=== PATIENT | male | born 1990 ===

== ENCOUNTER 2022-11-21 15:23 | Emergency (ER) | payer SELFPAY ==
[2022-11-21 15:39] VITALS: BP 130/83; PULSE 79; RESP 16; TEMP 36.7; O2SAT 97; BMI 20.5
--- NOTE | 2022-11-21 15:51 | XRR_ITS ---
PROCEDURE INFORMATION: Exam: XR Chest Exam date and time: 11/21/2022 4:36 PM Age: 32 years old Clinical indication: Cough with hemorrhage; Additional info: Hemoptysis TECHNIQUE: Imaging protocol: Radiologic exam of the chest. Views: 2 views. COMPARISON: No relevant prior studies available. FINDINGS: Lungs: Unremarkable. No consolidation. Pleural spaces: Unremarkable. No pleural effusion. No pneumothorax. Heart/Mediastinum: Unremarkable. No cardiomegaly. Bones/joints: Unremarkable. XR/XR chest 2V* [id number] IMPRESSION: No acute findings.
[2022-11-21 16:43] LABS: Basophils % 0.6 %; Eosinophils # 0.1 10^3/uL (0.0-0.8); Eosinophils % 1.7 %; Hematocrit 45.4 % (42.0-52.0); Hemoglobin 15.5 g/dL (11.7-16.6); Lymphocytes # 2.6 10^3/uL (0.8-4.8); Lymphocytes % 36.4 %; Mean Corpuscular HGB Conc 34.1 g/dL (30.0-36.0); Mean Corpuscular Hemoglobin 28.4 pg (28.0-34.0); Mean Corpuscular Volume 83.3 fl (80-94); Mean Platelet Volume 11.3 fL (7.4-10.4); Monocytes # 0.4 10^3/uL (0.2-0.9); Monocytes % 5.7 %; Neutrophils # 4.02 10^3/uL (1.8-7.7); Neutrophils % 55.3 %; Nucleated Red Blood Cells % 0 %; Platelet Count 275 10^3/cmm (130-400); Red Blood Count 5.45 10^6/uL (4.1-5.3); Red Cell Distribution Width 12.4 % (12.1-15.1); White Blood Count 7.3 10^3/uL (4.0-10.0)
[2022-11-21 17:02] LABS: INR 1.05 (0.8-1.2)
[2022-11-21 17:03] LABS: Partial Thromboplastin Time 27.9 SECONDS (23.9-36.7)
[2022-11-21 17:07] LABS: Anion Gap 13.8 (5-19); Blood Urea Nitrogen 16 mg/dL (6-20); Calcium 9.9 mg/dL (8.5-10.5); Carbon Dioxide 27 mmol/L (22-29); Chloride 97 mmol/L (98-107); Glomerular Filtration Rate 99.1 mL/min (90-130); Glucose 76 mg/dL (65-115); Osmolality Calculated 278 mOsm/kg (285-295); Potassium 3.8 mmol/L (3.5-5.1); Sodium 134 mmol/L (136-145)
--- NOTE | 2022-11-21 18:28 | W.ED.GIBLEED ---
Documented by User: India Velasquez, ICT SUPPORT ENGINEER-C 11/22/22 01:02 HPI - GI Bleed General: Chief complaint: GI Bleed Stated complaint: vomiting blood Time Seen by Provider: 11/21/22 18:13 History of Present Illness: Patient is in today for vomiting blood. He reports that he was at work and he felt like he got choked on his spit and he coughed a lot and had some bloody mucus. He states that he then vomited a small amount of bright red blood mucus. He states that this happened 2 times at work today and is happened one other time approximately a month ago. He reports a very mild intermittent epigastric pain. He denies any fever or chills. He reports he is eating and drinking normally. He denies any nasal congestion or drainage. He denies any other symptoms. He states he takes no medications. He denies any blood in his stool or urine. Associated symptoms: Reports abdominal pain (Mild epigastric); Denies chills, fever(s), headache(s) or syncope Review of Systems Const: Denies: fever(s), chills or body aches Eyes: Denies: change in vision or blurry vision ENMT: Denies: throat pain Card: Denies: chest pain, palpitations, irregular heart rhythm, lightheadedness or syncope Resp: Denies: dyspnea, productive cough or non-productive cough GI: Reports: abdominal pain (Mild epigastric) and hematemesis : Denies: flank pain, dysuria, urinary frequency, urinary urgency or urinary hesitancy Musc: Denies: neck pain or back pain Neuro: Denies: headache(s), numbness in extremities or weakness in extremities Physical Exam Const: COMMON NORMALS: no acute distress, patient oriented x3 and alert GENERAL APPEARANCE: cooperative ORIENTATION/CONSCIOUSNESS: Yes awake, Yes oriented to person, Yes oriented to place and Yes oriented to time HENMT: COMMON NORMALS: EAC's normal and TM's normal bilaterally EXTERNAL AUDITORY CANAL: EAC's normal TYMPANIC MEMBRANE: TM's normal bilaterally MOUTH: Normal oral and palatal mucosa present THROAT: posterior oropharynx normal Eye: COMMON NORMALS: Equal, round and reactive pupils present, EOMs intact bilaterally and conjunctivae normal GENERAL EYE: appearance normal, both eyes and all related structures ALIGNMENT: Yes alignment normal CONJUNCTIVA: Yes conjunctivae normal SCLERA: sclerae normal PUPIL: Yes Equal, round and reactive pupils present Neck/C-Spine: COMMON NORMALS: full ROM Resp: COMMON NORMALS: normal respiratory effort, No retractions, No use of accessory muscles and clear to auscultation bilaterally EFFORT & INSPECTION: Yes symmetric chest movement AUSCULTATION: clear to auscultation bilaterally Cardio: COMMON NORMALS: regular rate, regular rhythm, S1 normal heart sound present and S2 normal heart sound present RATE: regular rate RHYTHM: regular rhythm HEART SOUNDS: S1 normal heart sound present and S2 normal heart sound present GI: COMMON NORMALS: Normal to inspection, nondistended, normoactive bowel sounds present, Soft to palpation, non-tender, No hepatosplenomegaly present, no masses and no bruits INSPECTION: Yes normal to inspection PALPATION: Yes Soft to palpation and Yes No hepatosplenomegaly present : COMMON NORMALS: Yes no CVA tenderness BLADDER/KIDNEY EXAM: Yes no CVA tenderness Back/Pelvis: COMMON NORMALS: no CVA tenderness Neuro: COMMON NORMALS: patient oriented x3 SENSORIUM/ORIENTATION: Yes alert, Yes oriented to person, Yes oriented to place and Yes oriented to time Psych: COMMON NORMALS: cooperative Course Vital Signs: Vital signs: Vital Signs Temperature 98.0 F 11/21/22 15:39 Pulse Rate 79 11/21/22 15:39 Respiratory Rate 16 11/21/22 15:39 Blood Pressure 130/83 11/21/22 15:39 Pulse Oximetry 97 11/21/22 15:39 Oxygen Delivery Me thod Room Air 11/21/22 15:39 MDM - GI Bleed Medical Decision Making Patient is not actively vomiting. He is able to eat and drink without difficulty. He reports 2 episodes of vomiting today with small amounts of bright red blood and mucus. He denies any sinus congestion or issues. He is nontender to the maxillary sinuses. His throat is unremarkable on physical exam. He is in no acute distress on physical exam. His hemoglobin and hematocrit are stable. I had a lengthy discussion with the patient regarding red flags for worsening. I will have case management to help facilitate a referral to GI specialist in [place] where the patient is from. He prefers [facility]. Patient may need upper endoscopy for further complete evaluation. Patient is advised that should he start having any new or worsening symptoms including, but not limited to, fever, chills, inability to keep down p.o. fluids, worsening bloody vomitus, abdominal pain he should return to the ER immediately. Patient verbalizes understanding of instruction and is agreeable to discharge and follow-up with GI specialist. Lab Data 11/21/22 16:30 11/21/22 16:30 Radiology Impressions Chest X-Ray 11/21/22 15:51 IMPRESSION: No acute findings. Laboratory Results WBC 7.3 10^3/uL (4.0-10.0) 11/21/22 16:30 RBC 5.45 10^6/uL (4.1-5.3) H 11/21/22 16:30 Hgb 15.5 g/dL (11.7-16.6) 11/21/22 16:30 Hct 45.4 % (42.0-52.0) 11/21/22 16:30 MCV 83.3 fl (80-94) 11/21/22 16:30 MCH 28.4 pg (28.0-34.0) 11/21/22 16:30 MCHC 34.1 g/dL (30.0-36.0) 11/21/22 16:30 RDW 12.4 % (12.1-15.1) 11/21/22 16:30 Plt Count 275 10^3/cmm (130-400) 11/21/22 16:30 MPV 11.3 fL (7.4-10.4) H 11/21/22 16:30 Neut % (Auto) 55.3 % 11/21/22 16:30 Lymph % (Auto) 36.4 % 11/21/22 16:30 [place]ac % (Auto) 5.7 % 11/21/22 16:30 Eos % (Auto) 1.7 % 11/21/22 16:30 Baso % (Auto) 0.6 % 11/21/22 16:30 Neut # (Auto) 4.02 10^3/uL (1.8-7.7) 11/21/22 16:30 Lymph # (Auto) 2.6 10^3/uL (0.8-4.8) 11/21/22 16:30 [place]ac # (Auto) 0.4 10^3/uL (0.2-0.9) 11/21/22 16:30 Eos # (Auto) 0.1 10^3/uL (0.0-0.8) 11/21/22 16:30 Baso # (Auto) 0.0 10^3/uL (0.0-0.1) 11/21/22 16:30 Nucleated RBC % (auto) 0 % 11/21/22 16:30 Nucleated RBCs # 0.0 /100WBC 11/21/22 16:30 PT 14.10 SECONDS (12.1-14.9) 11/21/22 16:30 INR 1.05 (0.8-1.2) 11/21/22 16:30 APTT 27.9 SECONDS (23.9-36.7) 11/21/22 16:30 Sodium 134 mmol/L (136-145) L 11/21/22 16:30 Potassium 3.8 mmol/L (3.5-5.1) 11/21/22 16:30 Chloride 97 mmol/L (98-107) L 11/21/22 16:30 Carbon Dioxide 27 mmol/L (22-29) 11/21/22 16:30 Anion Gap 13.8 (5-19) 11/21/22 16:30 BUN 16 mg/dL (6-20) 11/21/22 16:30 Creatinine 0.9 mg/dL (0.7-1.2) 11/21/22 16:30 GFR Calculation 99.1 mL/min (90-130) 11/21/22 16:30 Glucose 76 mg/dL (65-115) 11/21/22 16:30 Calculated Osmolality 278 mOsm/kg (285-295) L 11/21/22 16:30 Calcium 9.9 mg/dL (8.5-10.5) 11/21/22 16:30 Discharge Plan Discharge Patient Disposition: Home Clinical Impression: Hematemesis of unknown cause Condition: Stable Prescriptions: New Protonix 40 mg tablet,delayed release (DR/EC) 40 mg PO DAILY Qty: 30 0RF Discharge Orders: Discharge ED (Routine); Ordered 11/21/22 Ordered By: India Velasquez Discharge Diet: Usual diet Discharge Activity: Resume usual activity Activity Restrictions/Additional Instructions: Because you are not currently vomiting and your labs are stable we will discharge you to follow-up with GI specialist for further evaluation; however, should you have more bloody vomitus, increased abdominal pain, inability to drink oral liquids, fever, chills, dizziness or feeling faint you should return immediately to the emergency department Coding Level of Care Code ED Senior Assistant Manager for Ibeth Wilson Documented by User: Syd Torres DO 11/22/22 06:24 HPI - GI Bleed General: Chief complaint: GI Bleed Stated complaint: vomiting blood Time Seen by Provider: 11/21/22 18:13 Course Vital Signs: Vital signs: Vital Signs Temperature 98.0 F 11/21/22 15:39 Pulse Rate 79 11/21/22 15:39 Respiratory Rate 16 11/21/22 15:39 Blood Pressure 130/83 11/21/22 15:39 Pulse Oximetry 97 11/21/22 15:39 Oxygen Delivery Me thod Room Air 11/21/22 15:39 MDM - GI Bleed Medical Decision Making Patient is not actively vomiting. He is able to eat and drink without difficulty. He reports 2 episodes of vomiting today with small amounts of bright red blood and mucus. He denies any sinus congestion or issues. He is nontender to the maxillary sinuses. His throat is unremarkable on physical exam. He is in no acute distress on physical exam. His hemoglobin and hematocrit are stable. I had a lengthy discussion with the patient regarding red flags for worsening. I will have case management to help facilitate a referral to GI specialist in [place] where the patient is from. He prefers [facility]. Patient may need upper endoscopy for further complete evaluation. Patient is advised that should he start having any new or worsening symptoms including, but not limited to, fever, chills, inability to keep down p.o. fluids, worsening bloody vomitus, abdominal pain he should return to the ER immediately. Patient verbalizes understanding of instruction and is agreeable to discharge and follow-up with GI specialist. Chart reviewed and patient discussed with midlevel. Agree with assessment and plan. Lab Data 11/21/22 16:30 11/21/22 16:30 Radiology Impressions Chest X-Ray 11/21/22 15:51 IMPRESSION: No acute findings. Laboratory Results WBC 7.3 10^3/uL (4.0-10.0) 11/21/22 16:30 RBC 5.45 10^6/uL (4.1-5.3) H 11/21/22 16:30 Hgb 15.5 g/dL (11.7-16.6) 11/21/22 16:30 Hct 45.4 % (42.0-52.0) 11/21/22 16:30 MCV 83.3 fl (80-94) 11/21/22 16:30 MCH 28.4 pg (28.0-34.0) 11/21/22 16: MCHC 34.1 g/dL (30.0-36.0) 11/21/22 16:30 RDW 12.4 % (12.1-15.1) 11/21/22 16:30 Plt Count 275 10^3/cmm (130-400) 11/21/22 16:30 MPV 11.3 fL (7.4-10.4) H 11/21/22 16:30 Neut % (Auto) 55.3 % 11/21/22 16:30 Lymph % (Auto) 36.4 % 11/21/22 16:30 [place] % (Auto) 5.7 % 11/21/22 16:30 Eos % (Auto) 1.7 % 11/21/22 16:30 Baso % (Auto) 0.6 % 11/21/22 16:30 Neut # (Auto) 4.02 10^3/uL (1.8-7.7) 11/21/22 16:30 Lymph # (Auto) 2.6 10^3/uL (0.8-4.8) 11/21/22 16:30 [place]ac # (Auto) 0.4 10^3/uL (0.2-0.9) 11/21/22 16:30 Eos # (Auto) 0.1 10^3/uL (0.0-0.8) 11/21/22 16:30 Baso # (Auto) 0.0 10^3/uL (0.0-0.1) 11/21/22 16:30 Nucleated RBC % (auto) 0 % 11/21/22 16:30 Nucleated RBCs # 0.0 /100WBC 11/21/22 16:30 PT 14.10 SECONDS (12.1-14.9) 11/21/22 16:30 INR 1.05 (0.8-1.2) 11/21/22 16:30 APTT 27.9 SECONDS (23.9-36.7) 11/21/22 16:30 Sodium 134 mmol/L (136-145) L 11/21/22 16:30 Potassium 3.8 mmol/L (3.5-5.1) 11/21/22 16:30 Chloride 97 mmol/L (98-107) L 11/21/22 16:30 Carbon Dioxide 27 mmol/L (22-29) 11/21/22 16:30 Anion Gap 13.8 (5-19) 11/21/22 16:30 BUN 16 mg/dL (6-20) 11/21/22 16:30 Creatinine 0.9 mg/dL (0.7-1.2) 11/21/22 16:30 GFR Calculation 99.1 mL/min (90-130) 11/21/22 16:30 Glucose 76 mg/dL (65-115) 11/21/22 16:30 Calculated Osmolality 278 mOsm/kg (285-295) L 11/21/22 16:30 Calcium 9.9 mg/dL (8.5-10.5) 11/21/22 16:30 Discharge Plan Discharge Patient Disposition: Home Clinical Impression: Hematemesis of unknown cause Condition: Stable Prescriptions: New Protonix 40 mg tablet,delayed release (DR/EC) 40 mg PO DAILY Qty: 30 0RF Discharge Orders: Discharge ED (Routine); Ordered 11/21/22 Ordered By: India Velasquez Discharge Diet: Usual diet Discharge Activity: Resume usual activity Activity Restrictions/Additional Instructions: Because you are not currently vomiting and your labs are stable we will discharge you to follow-up with GI specialist for further evaluation; however, should you have more bloody vomitus, increased abdominal pain, inability to drink oral liquids, fever, chills, dizziness or feeling faint you should return immediately to the emergency department Coding Level of Care Code ED Senior Assistant Manager for Ibeth Wilson
--- NOTE | 2022-11-22 08:51 | DCPLANNER ---
Addendum entered by Miracle Romo 01/01/23 09:22: transportation operations manager received a fax from [facility] stating that they do not schedule from ER referrals outside the [facility] system. Please have patient get a referral from his physician. transportation operations manager called patient at phone number [phone] - unable to speak with patient at this time, a voicemail was left for patient to return case investigator phone call. Original Note: transportation operations manager had message to refer patient to [facility] in [place] for GI. transportation operations manager faxed patients information the [facility] clinic, it will be reviewed and clinic will call patient with appointment information.
--- NOTE | 2022-11-22 13:33 | DCPLANNER ---
loss control manager was triggered to call patient due to no primary care physician - patient does not live in the area.
== END 2022-11-21 18:51 | disposition home or self-care (01) ==
PROVIDERS: Emergency Medicine; Emergency Provider Nurse Practitioner Family
DX: K92.0 Hematemesis (principal)
CPT/HCPCS: 36415; 71046; 80048; 85025; 85610; 85730; 99284